=== PATIENT | female | born 1945 | race Caucasian/White ===

== ENCOUNTER 2024-07-10 09:20 | Outpatient (REF) | payer MEDICARE, OTHER, SELFPAY ==
[2024-07-10 11:10] LABS: MANUAL DIFF FLAG NO
[2024-07-10 11:35] LABS: Basophils Absolute Auto 0.1 X10*3/uL (0.0-0.2); Basophils Percent Auto 1.1 % (0-2); Eosinophils Absolute Auto 0.2 X10*3/uL (0.0-0.4); Eosinophils Percent Auto 2.3 % (0-4); Hematocrit 35.1 % (37.0-47.0); Hemoglobin 11.9 g/dl (12.0-16.0); Imm Gran Abs Auto 0.02 X10*3/uL (0.00-0.03); Imm Gran Pct Auto 0.3 % (0.0-0.4); Lymphocytes Absolute Auto 2.2 X10*3/uL (1.2-4.9); Lymphocytes Percent Auto 34.4 % (20-40); Mean Corpuscular HGB Conc 33.9 g/dl (31.0-35.0); Mean Corpuscular Hemoglobin 31.2 pg (27.0-33.0); Mean Corpuscular Volume 92.1 fL (80.0-98.0); Mean Platelet Volume 10.1 fL (9.4-12.3); Monocytes Absolute Auto 0.5 X10*3/uL (0.1-1.2); Monocytes Percent Auto 8.2 % (2-11); Neutrophils Absolute Auto 3.5 x10*3/uL (2.0-8.3); Neutrophils Percent Auto 53.7 % (45-73); Platelet Count 211 X10*3/uL (160-400); Red Blood Count 3.81 X10*6/uL (4.20-5.50); Red Cell Distribution Width 13.1 % (11.0-16.0); White Blood Count 6.5 X10*3/uL (4.8-10.8)
[2024-07-10 12:32] LABS: Alanine Aminotransferase 26 U/L (0-31); Albumin Level 4.1 g/dL (3.5-5.0); Anion Gap 17 (12-20); Aspartate Amino Transferase 36 U/L (5-31); Bilirubin Total 0.6 mg/dL (0.0-1.0); Blood Urea Nitrogen 24 mg/dL (9-16); Calcium 9.9 mg/dL (8.4-10.2); Carbon Dioxide 25 mmol/L (22-29); Chloride 101 mmol/L (96-108); Estimated Glomerular Filt Rate 45; Glucose Random 281 mg/dL (60-115); Potassium 4.8 mmol/L (3.3-5.1); Sodium 138 mmol/L (135-145); Total Protein 7.3 g/dL (6.5-8.0)
[2024-07-10 12:37] LABS: Alkaline Phosphatase 89 U/L (39-117)
== END 2024-07-10 09:21 | disposition home or self-care (01) ==
LOC: HO.LAB 09:20
PROVIDERS: PCP Internal Medicine; Visit Provider Nurse Practitioner
DX: Z01.818 Encounter for other preprocedural examination (principal)
CPT/HCPCS: 36415; 80053; 85025

== ENCOUNTER 2024-07-10 09:20 | Outpatient (AMB) | payer MEDICARE, SELFPAY ==
--- NOTE | 2024-07-10 09:32 | MHC.OFFVIS ---
Vital Signs 07/10/24 09:40 Height 5 ft 2 in Weight 204 lb 9.423 oz BMI 37.4 BP 127/58 L Blood Pressure Location Lt brachial Position Sitting Pulse 79 Intake Visit Reasons: Colonoscopy Screening Intake Note: New patient in office today for colonoscopy screening. CC: Patient states that she needs to use suppositories and stool softener to have a BM. She also reports abdominal bloating, abdominal pain on and off from gas mostly. She takes omeprazole for GERD and chews antacids sometimes. Skin Washer Required: No Accompanied by: Daughter Allergies No Known Allergies Allergy (Verified 09/04/24 11:16) HPI HPI Colonoscopy Screening: Details: 78-year-old female here for preprocedural meeting to discuss a screening colonoscopy. She is referred by [facility] PMX Hypertension High cholesterol Diabetes Diabetic neuropathy CAD GERD Constipation History of uterine cancer * SURGICAL HISTORY Bilateral total knee replacements Hysterectomy Appendectomy Cholecystectomy Shoulder arthroscopy Shoulder replacement Aortic valve replacement Pacemaker placed * ALLERGIES: NKDA * [facility] LABS: none TODAY'S VISIT IT APPEARS THAT THE PATIENT IS ON OZEMPIC Her last was 13 y ears ago, and she tried to have one at [facility] but they told her she was not cleaned out enough. She varies between CIC and explosive diarrhea. 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 Will trial senna. She has had an aortic valve replacement but her cardiac conditions are well controlled and she denies any resp problems. NO ID problems. No anes or sed problems. THere is no known FHX or crc or polyps. [facility] Medical History Uterine cancer Surgical History H/O colonoscopy H/O shoulder replacement H/O arthroscopy of shoulder History of cholecystectomy History of appendectomy History of hysterectomy History of total bilateral knee replacement Family History Brother Skin cancer Mother Skin cancer Social History (Reviewed 09/04/24 @ 11:22 by Rico Boyd, [facility]) Alcohol intake: current Alcohol intake frequency: holidays/special occasions only Alcohol type: wine Patient Tobacco Use Status: Never used Tobacco Review of Systems Const Denies fatigue, Denies fever(s), Denies night sweats, Denies poor appetite and Denies weight loss Eyes Details: glasses Reports requires corrective lenses ENT Reports Normal hearing present, Denies dental pain, Denies dysphagia, Denies hearing loss, Denies mouth pain, Denies odynophagia, Denies throat swelling, Denies tongue swelling and Reports other (Dentition adequate) Card Reports no additional complaints Resp Reports no additional complaints GI Details: Denies abdominal pain, Denies melena, Denies bloating, Denies hematochezia, Reports constipation, Denies GI cramping, Denies dysphagia, Denies excessive flatus, Denies early satiety, Denies heartburn, Reports diarrhea, Denies nausea, Denies odynophagia, Denies vomiting and Denies hematemesis Skin/Breast Denies pruritus, Denies lesions, Denies rash and Denies jaundice Neuro Reports Normal hearing present and Denies Abnormal speech present Endo Denies fatigue Aller/Immun Denies throat swelling and Denies tongue swelling Physical Exam Vital Signs: Last Vital Signs Pulse 79 07/10/24 09:40 BP 127/58 L 07/10/24 09:40 BMI result Body Mass Index 37.4 Const General: cooperative, no acute distress, well developed and well groomed Nutritional Appearance: well nourished and obese Orientation/consciousness: oriented to person, oriented to place and oriented to time Limitations: No language barrier HEENT Head: Yes normocephalic and Yes atraumatic Eyes General: appearance normal, both eyes and all related structures Pupils: Equal, round and reactive pupils present Neck Neck: Yes normal visual inspection and Yes no lymphadenopathy Thyroid: Thyroid normal Resp Effort & Inspection: normal respiratory effort and able to speak in complete sentences Auscultation: clear to auscultation bilaterally Cardio Rate: regular rate Rhythm: regular rhythm Heart sounds: Normal, physiologic split S2 sound present Peripheral pulses: radial pulses present and posterior tibial pulses present GI Other: scattered ? psoriatic dermatitis Inspection: No distended, Yes Abdominal panniculus present, Yes obesity, Yes scar and Yes striae Palpation (GI): Soft to palpation, nontender, no guarding, not rigid and No hepatosplenomegaly present Percussion: Yes normal to percussion Auscultation: normal bowel sounds Rectal Exam - Female: deferred Abdomen image: 1. surgical scars Skin General skin exam: no rashes or lesions noted, turgor normal, skin not dry, no jaundice, No spider nevi and no striae Rashes: no rashes Nails: normal Neuro General: oriented to person, oriented to place and oriented to time Cranial nerves: Yes Equal, round and reactive pupils present and Yes Normal hearing present Speech: No Abnormal speech present Extrem General: Yes normal to inspection, No clubbing, No cyanosis and No edema Psych Appearance: grossly normal and well kempt Mental Status: mental status grossly normal Speech and movement: Normal speech and movement present Affect: normal affect Attitude: cooperative Thought process: Normal thought process present and not confabulating Thought content: Normal thought content present Insight: Good insight present (Psych) Judgement: Good judgement present (Psych) Assessment & Plan Assessment & Plan (1) Pre-op examination: Code(s): Z01.818 - Encounter for other preprocedural examination Category: Medical (2) GERD (gastroesophageal reflux disease): Code(s): K21.9 - Gastro-esophageal reflux disease without esophagitis Category: Medical (3) Constipation: Code(s): K59.00 - Constipation, unspecified Category: Medical Plan IT APPEARS THAT THE PATIENT IS ON OZEMPIC Her last was 13 y ears ago, and she tried to have one at [facility] but they told her she was not cleaned out enough. She varies between CIC and explosive diarrhea. 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 Will trial senna. She has had an aortic valve replacement but her cardiac conditions are well controlled and she denies any resp problems. NO ID problems. No anes or sed problems. THere is no known FHX or crc or polyps. Orders: Orders Colonoscopy - GI Use Only 07/10/24 K59.00 - Constipation, unspecified Comprehensive Met. Panel 07/10/24 Z01.818 - Encounter for other preprocedural examination Complete Blood Count Auto Diff 07/10/24 Z01.818 - Encounter for other preprocedural examination Medications: New sennosides (Senna Laxative) 8.6 mg PO BEDTIME 60 tabs 3RF K59.00 - Constipation, unspecified peg 3350-electrolytes 236-22.74-6.74 -5.86 gram (Golytely) until fecal effluent is clear; do not exceed a total volume of 2,000 mL 240 mL PO Q10M 4,000 mL 0RF 1 day Z12.11 - Encounter for screening for malignant neoplasm of colon bisacodyl (Dulcolax (bisacodyl)) 10 mg (2 x 5 mg) PO BEDTIME 4 tabs 0RF 2 days Coding Level of Care Code New Pt Level 3 (03343) Diagnoses Pre-op examination Z01.818 GERD (gastroesophageal reflux disease) K21.9 Constipation K59.00
[2024-07-10 09:40] VITALS: BP 127/58; PULSE 79; BMI 37.4
== END 2024-07-10 10:37 | disposition home or self-care (01) ==
PROVIDERS: PCP Internal Medicine; Visit Provider Nurse Practitioner
DX: K21.9 Gastro-esophageal reflux disease without esophagitis (principal); K59.00 Constipation, unspecified; Z12.11 Encounter for screening for malignant neoplasm of colon
CPT/HCPCS: 99203

== ENCOUNTER 2024-09-04 11:01 | Outpatient (AMB) | payer MEDICARE, SELFPAY ==
[2024-09-04 11:08] VITALS: BP 132/70; PULSE 79; BMI 36.7
--- NOTE | 2024-09-04 11:08 | MHC.OFFVIS ---
Vital Signs 09/04/24 11:08 Height 5 ft 2 in Weight 200 lb 9.93 oz BMI 36.7 BP 132/70 Blood Pressure Location Lt brachial Position Sitting Pulse 79 Intake Visit Reasons: 8 week follow up Intake Note: Martina presents in office today in follow up of labs. CC: Patient states that they have not heard from colonoscopy yet. Patient reports doing better since her last visit. Print Developer Automatic Required: No Accompanied by: Daughter Allergies No Known Allergies Allergy (Verified 09/04/24 11:16) HPI HPI 8 week follow up: Details: Assessment & Plan (1) Pre-op examination: Code(s): Z01.818 - Encounter for other preprocedural examination Category: Medical (2) GERD (gastroesophageal reflux disease): Code(s): K21.9 - Gastro-esophageal reflux disease without esophagitis Category: Medical (3) Constipation: Code(s): K59.00 - Constipation, unspecified Category: Medical Orders: Orders Colonoscopy - GI Use Only Today K59.00 - Constipation, unspecified Comprehensive Met. Panel Today Z01.818 - Encounter for other preprocedural examination Complete Blood Count Auto Diff Today Z01.818 - Encounter for other preprocedural examination Medications: New sennosides (Senna Laxative) 8.6 mg PO BEDTIME 60 tabs 3RF K59.00 - Constipation, unspecified peg 3350-electrolytes 236-22.74-6.74 -5.86 gram (Golytely) until fecal effluent is clear; do not exceed a total volume of 2,000 mL 240 mL PO Q10M 1 day 4,000 mL 0RF Z12.11 - Encounter for screening for malignant neoplasm of colon bisacodyl (Dulcolax (bisacodyl)) 10 mg (2 x 5 mg) PO BEDTIME 2 days 4 tabs 0RF IT APPEARS THAT THE PATIENT IS ON OZEMPIC Her last was 13 y ears ago, and she tried to have one at [facility] but they told her she was not cleaned out enough. She varies between CIC and explosive diarrhea. 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 Will trial senna. She has had an aortic valve replacement but her cardiac conditions are well controlled and she denies any resp problems. NO ID problems. No anes or sed problems. THere is no known FHX or crc or polyps. LABS: Laboratory Tests 07/10/24 11:08 WBC 6.5 Hgb 11.9 L Hct 35.1 L MCV 92.1 MCH 31.2 Plt Count 211 Estimated GFR 45 Total Bilirubin 0.6 AST 36 H ALT 26 Alkaline Phosphatase 89 COLONOSCOPY BIOPSY TODAY'S VISIT She is here today with her daughter who is supportive With only 1 senna qhs she is much less bloated, but her BM's are uneven and they are not happening in the am - the time of day is uneven and at times it will happen to her unexpectedly. She took 2 once, but still had a delayed response. I suggest she try 3 a night, and if this is still uneven we will progress to bisacodyl. Overall however she is happy with the progress she has made in terms of the bloating as she had severe discomfort and even difficulty breathing she was so full. She also lost 4 lb which is a testament to her extreme stool burden. ROV next available [facility] Medical History Uterine cancer Surgical History H/O colonoscopy H/O shoulder replacement H/O arthroscopy of shoulder History of cholecystectomy History of appendectomy History of hysterectomy History of total bilateral knee replacement Family History Brother Skin cancer Mother Skin cancer Social History Alcohol intake: current Alcohol intake frequency: holidays/special occasions only Alcohol type: wine Patient Tobacco Use Status: Never used Tobacco Review of Systems Const Denies fatigue, Denies fever(s), Denies night sweats, Denies poor appetite and Reports weight loss Eyes Details: glasses Reports requires corrective lenses ENT Reports Normal hearing present, Denies dental pain, Denies dysphagia, Denies hearing loss, Denies mouth pain, Denies odynophagia, Denies throat swelling, Denies tongue swelling and Reports other (Dentition adequate) Card Reports no additional complaints Resp Reports no additional complaints GI Details: Denies abdominal pain, Denies melena, Denies bloating, Denies hematochezia, Reports constipation, Denies GI cramping, Denies dysphagia, Denies excessive flatus, Denies early satiety, Reports heartburn, Denies diarrhea, Denies nausea, Denies odynophagia, Denies vomiting and Denies hematemesis Skin/Breast Denies pruritus, Denies lesions, Denies rash and Denies jaundice Neuro Reports Normal hearing present and Denies Abnormal speech present Endo Denies fatigue Aller/Immun Denies throat swelling and Denies tongue swelling Physical Exam Vital Signs: Last Vital Signs Pulse 79 09/04/24 11:08 BP 132/70 09/04/24 11:08 BMI result Body Mass Index 36.7 Const General: cooperative, no acute distress, well developed and well groomed Nutritional Appearance: well nourished and obese morbidly obese Orientation/consciousness: oriented to person, oriented to place and oriented to time Limitations: No language barrier HEENT Head: Yes normocephalic and Yes atraumatic Eyes General: appearance normal, both eyes and all related structures Pupils: Equal, round and reactive pupils present Neck Neck: Yes normal visual inspection and Yes no lymphadenopathy Thyroid: Thyroid normal Resp Effort & Inspection: normal respiratory effort and able to speak in complete sentences Auscultation: clear to auscultation bilaterally Cardio Rate: regular rate Rhythm: regular rhythm Heart sounds: Normal, physiologic split S2 sound present Peripheral pulses: radial pulses present and posterior tibial pulses present GI Inspection: No distended, Yes Abdominal panniculus present and Yes obesity Palpation (GI): Soft to palpation, nontender, no guarding, not rigid and No hepatosplenomegaly present Percussion: Yes normal to percussion Auscultation: normal bowel sounds Rectal Exam - Female: deferred Skin General skin exam: no rashes or lesions noted, turgor normal, skin not dry, no jaundice, No spider nevi and no striae Rashes: no rashes Nails: normal Neuro General: oriented to person, oriented to place and oriented to time Cranial nerves: Yes Equal, round and reactive pupils present and Yes Normal hearing present Speech: No Abnormal speech present Extrem General: Yes normal to inspection, No clubbing, No cyanosis and No edema Psych Appearance: grossly normal and well kempt Mental Status: mental status grossly normal Speech and movement: Normal speech and movement present Affect: normal affect Attitude: cooperative Thought process: Normal thought process present and not confabulating Thought content: Normal thought content present Insight: Fair insight present (Psych) Judgement: Fair judgement present (Psych) Assessment & Plan Assessment & Plan (1) Constipation: Code(s): K59.00 - Constipation, unspecified Category: Medical (2) GERD (gastroesophageal reflux disease): Code(s): K21.9 - Gastro-esophageal reflux disease without esophagitis Category: Medical Plan She is here today with her daughter who is supportive With only 1 senna qhs she is much less bloated, but her BM's are uneven and they are not happening in the am - the time of day is uneven and at times it will happen to her unexpectedly. She took 2 once, but still had a delayed response. I suggest she try 3 a night, and if this is still uneven we will progress to bisacodyl. Overall however she is happy with the progress she has made in terms of the bloating as she had severe discomfort and even difficulty breathing she was so full. She also lost 4 lb which is a testament to her extreme stool burden. She continues on her omeprazole as prescribed by her primary care provider with good control of her GERD ROV next available Medications: Changed From sennosides (Senna Laxative) 8.6 mg PO BEDTIME 60 tabs 3RF K59.00 - Constipation, unspecified To sennosides (Senna Laxative) 25.8 mg (3 x 8.6 mg) PO BEDTIME 90 tabs 3RF K59.00 - Constipation, unspecified Coding Level of Care Code Est Pt Level 3 (81370) Diagnoses Constipation K59.00 GERD (gastroesophageal reflux disease) K21.9
== END 2024-09-04 11:55 | disposition home or self-care (01) ==
PROVIDERS: PCP Internal Medicine; Visit Provider Nurse Practitioner
DX: K59.00 Constipation, unspecified (principal); K21.9 Gastro-esophageal reflux disease without esophagitis
CPT/HCPCS: 99213

== ENCOUNTER → 2024-09-04 11:01 | Outpatient (BNVA) | payer MEDICARE, SELFPAY | PROVIDERS: PCP Internal Medicine; Visit Provider Nurse Practitioner | DX: K59.00 Constipation, unspecified (principal); K21.9 Gastro-esophageal reflux disease without esophagitis | CPT/HCPCS: 99212 ==